=== PATIENT | male | born 1980 | race Caucasian/White ===

== ENCOUNTER → 2020-09-19 | Outpatient (CLI) | payer OTHER ==
[~2020-09-19] MED LIST: BACTROBAN OINT22 GM EXT; KEFLEX500 MG PO; LODINE CAP 300300 MG PO; PREDNISONE 50 M50 MG PO; TESSALON PERLE100 MG PO; VENTOLIN HFA 66.7 GM INH
== END ==
LOC: SLEEP 14:45
DX: R06.83 Snoring (principal); R40.0 Somnolence; R51.9 Headache, unspecified
CPT/HCPCS: 95810